=== PATIENT | female | born 1965 | race Two or more races ===

== ENCOUNTER 2024-07-03 06:47 | Day surgery (SDC) | payer OTHER ==
[2024-07-01 08:44] LABS: BASO % 0.2 % (0.1-1.2); EOS # 0.02 (0.04-0.54); EOS % 0.2 % (0.7-7.0); HEMATOCRIT 41.4 % (34.1-44.9); HEMOGLOBIN 14.3 g/dL (11.2-15.7); LYMPH # 1.11 (1.18-3.74); LYMPH % 8.7 % (19.3-53.1); MEAN CORPUSCULAR HEMOGLOBIN 33.4 pg (25.6-32.2); MONO % 3.9 % (4.7-12.5); NEUT % 86.5 % (34.0-71.1); PLATELET COUNT 273 K/uL (163-369); RED BLOOD COUNT 4.28 M/uL (3.93-5.22); RED CELL DISTRIBUTION WIDTH 11.7 % (11.6-14.4)
[2024-07-01 09:03] VITALS: BP 133/84
[2024-07-01 09:12] LABS: INR 1.03; PARTIAL THROMBOPLASTIN TIME 27.6 SECONDS (22.0-34.0); PROTHROMBIN TIME 11.2 SECONDS (9.0-11.5)
[2024-07-01 09:14] LABS: ALBUMIN 4.2 gm/dL (3.4-5.0); BILIRUBIN TOTAL 0.7 mg/dL (0.3-1.2); CALCIUM 9.1 mg/dL (8.5-10.1); CREATININE SERUM 0.76 mg/dL (0.55-1.02); GFR 78.72; GLOBULINA 3.8 G/DL (2.4-3.5); POTASSIUM 4.08 mEq/L (3.5-5.1)
[~2024-07-03] VITALS: Ht 160 cm; Wt 57.6 kg
[2024-07-03] MEDS ORDERED: POVIDONE-IODINE 118 ML BOTT TOP ONE (10:51)
[2024-07-03] MEDS ORDERED: PROMETHAZINE HCL 50 MG/ML AMPUL IM ONE (14:30)
[2024-07-03] MEDS ORDERED: MORPHINE SULFATE 4 MG/ML VIAL IV PRN (14:30)
[2024-07-03] MEDS ORDERED: MORPHINE SULFATE 4 MG/ML VIAL IV ONE (15:50)
== END 2024-07-03 17:30 | disposition home or self-care (01) ==
LOC: CIR.AMB 06:47
PROVIDERS: ATTEND Obstetrics & Gynecology
DX: N84.0 Polyp of corpus uteri (principal); N95.0 Postmenopausal bleeding; Z88.0 Allergy status to penicillin

== ENCOUNTER 2024-08-21 12:34 | Emergency (ER) | payer OTHER ==
[~2024-08-21] VITALS: Ht 160 cm; Wt 57.2 kg
[2024-08-21] MEDS ORDERED: ACETAMINOPHEN 500 MG GEL..CAP PO ONE (15:30)
[2024-08-21 16:01] LABS: BASO % 0.5 % (0.1-1.2); EOS # 0.10 (0.04-0.54); EOS % 1.8 % (0.7-7.0); LYMPH # 1.43 (1.18-3.74); LYMPH % 25.4 % (19.3-53.1); MEAN PLATELET VOLUME 10.70 fl (9.4-12.4); MONO # 0.57 (0.24-0.82); MONO % 10.1 % (4.7-12.5); NEUT # 3.47 (1.56-6.13); NEUT % 61.7 % (34.0-71.1); RED CELL DISTRIBUTION WIDTH 11.9 % (11.6-14.4)
[2024-08-21 16:31] LABS: COVID-19 AG NEGATIVE (NEGATIVE)
[2024-08-21] MEDS ORDERED: ZYRTEC10 MG PO (16:53)
[2024-08-21] MEDS ORDERED: GILTUSS COUGH-118 M1 PO (16:54)
== END 2024-08-21 18:11 | disposition home or self-care (01) ==
LOC: ER 12:45
PROVIDERS: Preventive Medicine Public Health & General Preventive Medicine
DX: T78.49XA Other allergy, initial encounter (principal); X58.XXXA Exposure to other specified factors, initial encounter; R53.81 Other malaise; Z20.822 Contact with and (suspected) exposure to COVID-19; Z88.0 Allergy status to penicillin